=== PATIENT | male | born 1960 | race Two or more races ===

== ENCOUNTER 2018-02-02 15:01 | Inpatient (IN) | payer MEDICAID ==
[~2018-02-02] VITALS: Ht 177.8 cm; Wt 111.3 kg
[~2018-02-02 15:01] MED LIST: RIBA200C12; TAM04C; [UNRECOGNIZED DRUG - CODE]; [UNRECOGNIZED DRUG - CODE]
[2018-02-02 15:32] LABS: Basophils # (auto) 0.1 uL; Eosinophils # (auto) 0.1 uL; Eosinophils % (auto) 1.1 % (0.0-7.0); Hematocrit 53.9 % (41.0-53.0); Lymphocytes # (auto) 1.6 uL; Monocytes # (auto) 0.6 uL
[2018-02-02 15:39] LABS: Basophils % (auto) 0.8 % (0.0-2.0); Monocytes % (auto) 6.6 % (0.0-12.0); Neutrophils # (auto) 7.4 uL; Neutrophils % (auto) 75.5 % (37.0-80.0); Nucleated Red Blood Cells % 0.2 %; White Blood Cell 9.8 10^3/uL (4.4-10.8)
[2018-02-02 15:40] LABS: Hemoglobin 18.1 g/dL (13.5-17.5); Mean Corpuscular Hemoglobin 31.5 pg (28.0-32.0); Mean Corpuscular Hgb Conc. 33.5 g/dL (32.0-36.0); Platelet Count (auto) 174 10^3/uL (140-450); Red Blood Cells 5.74 10^6/uL (4.5-5.90); Red Cell Distribution Width 14.4 % (11.8-14.3)
[2018-02-02 15:49] LABS: Alanine Aminotransferase 44 U/L (16-61); Albumin 3.7 g/dL (3.4-5.0); Anion Gap 9 (5-15); BUN/Creatinine Ratio 12.2; Blood Alcohol < 3.0 mg/dL (0-5); Blood Urea Nitrogen 11 mg/dL (7-18); Calcium 8.8 mg/dL (8.5-10.1); Carbon Dioxide 27 mmol/L (21-32); Chloride 102 mmol/L (98-107); GFR African American 113 mL/min; GFR Non-African American 93 mL/min; Glucose 98 mg/dL (74-106); Potassium 3.8 mmol/L (3.5-5.1); Sodium 138 mmol/L (136-145)
[2018-02-02 15:51] LABS: Aspartate Aminotransferase 44 U/L (15-37); Total Protein 8.4 g/dL (6.4-8.2)
[2018-02-02 16:02] LABS: Acetaminophen < 2.0 ug/mL (10-30); Salicylate < 1.7 mg/dL (2.8-20.0)
[2018-02-02 16:03] LABS: Alkaline Phosphatase 105 U/L (45-117)
[2018-02-02] MEDS ORDERED: SODIUM CHLORIDE 0.9% 1,000 ML IV ONE (16:37)
[2018-02-02 16:45] LABS: Urine Bacteria NONE SEEN /hpf (None Seen); Urine Blood Negative /uL (Negative); Urine Mucus FEW (None Seen); Urine Specific Gravity 1.009 (1.001-1.035); Urine WBC 10 /hpf (0 - 3)
[2018-02-02] MEDS ORDERED: LORazepam 2MG/ML-1ML VIAL IV ONE (16:45)
[2018-02-02 17:04] LABS: INR 1.01 (0.9-1.15); Partial Thromboplastin Time 27.9 sec (23.78-33.04); Prothrombin Time 10.8 sec (9.27-12.13)
[2018-02-02 17:07] LABS: Amphetamine Screen, Urine NEGATIVE (NEGATIVE); Barbiturate Scree,Urine NEGATIVE (NEGATIVE); Benzodiazephine Screen, Urine NEGATIVE (NEGATIVE); Cannabinoid Screen, Urine NEGATIVE (NEGATIVE); Cocaine Screen, Urine NEGATIVE (NEGATIVE); Opiate Scree,Urine NEGATIVE (NEGATIVE); Phencyclidine Screen, Urine POSITIVE (NEGATIVE)
[2018-02-02 17:12] LABS: Blood Alcohol < 3.0 mg/dL (0-5); Magnesium 2.4 mg/dL (1.6-2.6)
[2018-02-02] MEDS ORDERED: MORPHINE SULFATE 8mg/ml INJ SDV IV PRN ×2 (18:45)
[2018-02-02] MEDS ORDERED: ACETAMINOPHEN 500 MG TAB PO PRN (18:45)
[2018-02-02] MEDS ORDERED: TEMAZEPAM 15 MG CAP PO PRN (18:45)
[2018-02-02] MEDS ORDERED: HYDROcodone-ACET 5/325MG TAB PO PRN (18:45)
[2018-02-02] MEDS ORDERED: LORazepam 0.5 MG TAB PO PRN (18:45)
[2018-02-02] MEDS ORDERED: PROMETHAZINE HCL 25 MG/ML 1ML IV PRN (18:45)
[2018-02-02] MEDS ORDERED: NITROGLYCERIN 0.4 MG SL TAB SL PRN (18:45)
[2018-02-02] MEDS ORDERED: LACTULOSE 20Gm/30ML SOLN PO PRN (18:45)
[2018-02-02] MEDS ORDERED: cefTRIAXone 1GM/10ml IVPUSH 10 ML IV ONE (19:00)
[2018-02-02] MEDS: PANTOPRAZOLE 40 MG TAB PO SCH (19:04)
[2018-02-02] MEDS: SODIUM CHLORIDE 0.9% 1,000 ML IV SCH (19:14)
[2018-02-02] MEDS: ATORVASTATIN 20 MG TAB PO SCH (22:46)
[2018-02-02 23:45] VITALS: BP 129/78
[2018-02-03 00:52] VITALS: BP 129/78
[2018-02-03 00:54] LABS: Hematocrit 50.8 % (41.0-53.0); Hemoglobin 16.9 g/dL (13.5-17.5)
[2018-02-03] MEDS: SODIUM CHLORIDE 0.9% 1,000 ML IV SCH ×2 (02:15→11:58)
[2018-02-03 05:00] VITALS: BP 133/87
[2018-02-03 06:51] LABS: Albumin 3.2 g/dL (3.4-5.0); BUN/Creatinine Ratio 12.4; Bilirubin, Total 0.8 mg/dL (0.2-1.0); Calcium 8.4 mg/dL (8.5-10.1); Potassium 3.7 mmol/L (3.5-5.1); Total Protein 7.3 g/dL (6.4-8.2)
[2018-02-03 07:37] LABS: Basophils # (auto) 0.1 uL; Eosinophils # (auto) 0.3 uL; Hematocrit 50.4 % (41.0-53.0); Hemoglobin 16.9 g/dL (13.5-17.5); Lymphocytes # (auto) 2.2 uL; Lymphocytes % (auto) 29.4 % (10.0-50.0); Mean Corpuscular Hemoglobin 31.5 pg (28.0-32.0); Mean Corpuscular Hgb Conc. 33.5 g/dL (32.0-36.0); Mean Corpuscular Volume 93.9 fL (80.0-100.0); Monocytes # (auto) 0.8 uL; Monocytes % (auto) 10.7 % (0.0-12.0); Neutrophils # (auto) 4.2 uL; Neutrophils % (auto) 54.9 % (37.0-80.0); Nucleated Red Blood Cells % 0.2 %; Platelet Count (auto) 155 10^3/uL (140-450); Red Blood Cells 5.37 10^6/uL (4.5-5.90); Red Cell Distribution Width 14.4 % (11.8-14.3); White Blood Cell 7.6 10^3/uL (4.4-10.8)
[2018-02-03 07:56] VITALS: BP 128/96
[2018-02-03] MEDS: PANTOPRAZOLE 40 MG TAB PO SCH (08:29)
[2018-02-03] MEDS: cefTRIAXone 1GM/10ml IVPUSH 10 ML IV SCH (08:29)
[2018-02-03 08:30] LABS: Folate (Folic Acid) 12.82 ng/mL (5.38-24)
[2018-02-03] MEDS ORDERED: ASPirin 81 mg TAB PO SCH (10:00)
[2018-02-03] MEDS ORDERED: ENOXAPARIN SOD 40 MG/0.4 ML SYRINGE SC SCH (10:00)
[2018-02-03] MEDS ORDERED: ENALAPRIL MALEATE 2.5 MG TAB PO SCH (10:00)
[2018-02-03 11:54] VITALS: BP 146/88
[2018-02-03 12:54] LABS: Hematocrit 45.2 % (41.0-53.0); Hemoglobin 14.9 g/dL (13.5-17.5)
[2018-02-03] MEDS ORDERED: FURO40TA4 PO (15:03)
[2018-02-03] MEDS ORDERED: ISOS30TA4 PO (15:03)
[2018-02-03] MEDS ORDERED: GABA300C10 PO (15:03)
[2018-02-03] MEDS ORDERED: ENAL2.5T PO (15:03)
[2018-02-03] MEDS ORDERED: SPIR25TA89 PO (15:03)
[2018-02-03] MEDS ORDERED: ALBUAER3 IN (15:09)
[2018-02-03] MEDS ORDERED: ASPI325T4 PO (15:09)
[2018-02-03] MEDS ORDERED: CARV12.544 PO (15:09)
[2018-02-03] MEDS ORDERED: FLUT0.05 NAS (15:09)
[2018-02-03 16:00] VITALS: BP 143/96
[2018-02-03] MEDS ORDERED: SPIRONOLACTONE 25 MG TAB PO ONE (16:15)
[2018-02-03] MEDS ORDERED: ISOSORBIDE DINITRATE 10 MG TAB PO ONE (16:15)
[2018-02-03] MEDS ORDERED: FUROSEMIDE 40 MG TAB PO ONE (16:15)
[2018-02-03 22:00] VITALS: BP 109/69
[2018-02-03] MEDS: ENALAPRIL MALEATE 10 MG TAB PO SCH (22:00)
[2018-02-03] MEDS: ATORVASTATIN 20 MG TAB PO SCH (22:05)
[2018-02-03] MEDS: GABAPENTIN 400 MG CAP PO SCH (22:05)
[2018-02-03] MEDS: CARVEDILOL 12.5 MG TAB PO SCH (22:05)
[2018-02-04 04:59] VITALS: BP 95/61
[2018-02-04] MEDS: GABAPENTIN 400 MG CAP PO SCH ×2 (05:45→13:48)
[2018-02-04] MEDS: CARVEDILOL 12.5 MG TAB PO SCH (08:33)
[2018-02-04] MEDS: cefTRIAXone 1GM/10ml IVPUSH 10 ML IV SCH (08:33)
[2018-02-04] MEDS: PANTOPRAZOLE 40 MG TAB PO SCH (08:33)
[2018-02-04 09:00] VITALS: BP 111/68
[2018-02-04] MEDS: ENALAPRIL MALEATE 10 MG TAB PO SCH (09:38)
[2018-02-04] MEDS ORDERED: ISOSORBIDE DINITRATE 10 MG TAB PO SCH (10:00)
[2018-02-04] MEDS ORDERED: ASPirin 325 MG TAB PO SCH (10:00)
[2018-02-04] MEDS ORDERED: SPIRONOLACTONE 25 MG TAB PO SCH (10:00)
[2018-02-04] MEDS ORDERED: FLUTICASONE PROP NASAL SPR 0.05 % (50MCG) 16GM EACHNOSTRI SCH (10:00)
[2018-02-04] MEDS ORDERED: FUROSEMIDE 40 MG TAB PO SCH (10:00)
== END 2018-02-04 14:40 | disposition home or self-care (01) | DRG 253 ==
LOC: EDBD 15:01 → ER 15:09 → TELE 15:10 → TELE-WESTW 23:15
PROVIDERS: ADMIT Internal Medicine; ATTEND Internal Medicine
PROC: 4B02XTZ Measurement of Cardiac Defibrillator, External Approach (ICD-10-PCS; principal; 2018-02-04)
DX: K92.2 Gastrointestinal hemorrhage, unspecified (principal); G93.41 Metabolic encephalopathy; I49.5 Sick sinus syndrome; I11.0 Hypertensive heart disease with heart failure; I50.9 Heart failure, unspecified; K59.00 Constipation, unspecified; F41.9 Anxiety disorder, unspecified; N39.0 Urinary tract infection, site not specified; G47.00 Insomnia, unspecified; E66.9 Obesity, unspecified; N40.0 Benign prostatic hyperplasia without lower urinary tract symptoms; T40.995A Adverse effect of other psychodysleptics [hallucinogens], initial encounter; Z95.0 Presence of cardiac pacemaker; Z86.19 Personal history of other infectious and parasitic diseases; Z68.35 Body mass index [BMI] 35.0-35.9, adult; Z79.899 Other long term (current) drug therapy
CPT/HCPCS: 36415; 70450; 71045; 80053; 80061; 80307; 80320; 80329; 81001; 82550; 82607; 82746; 83735; 83880; 84443; 84484; 85014; 85018; 85025; 85045; 85379; 85610; 85652; 85730; 86141; 93005; 93306; 96361; 96374; 96375; 96376